=== PATIENT | female | born 1950 | race Caucasian/White ===

== ENCOUNTER 2016-10-25 16:26 | Emergency (ER) | payer BC ==
[~2016-10-25 16:26] MED LIST: Ciprofloxacin 500 MG Tab PO ONE; Ondansetron 4 MG Tab.DIS PO ONE
[2016-10-25 16:33] VITALS: BP 140/83
[2016-10-25 17:10] LABS: CHLORIDE,CL 100 mEq/L (98-106); SODIUM,NA 138 mEq/L (136-145)
--- NOTE | 2016-10-25 17:13 | EDM.PDOC ---
ED HPI GENERAL MEDICAL PROBLEM - General Chief Complaint: Abdominal Pain Stated Complaint: I THINK I HAVE DIVERTICULITIS Time Seen by Provider: 10/25/16 16:55 Source of Information: Reports: Patient History Limitations: Reports: No Limitations - History of Present Illness INITIAL COMMENTS - FREE TEXT/NARRATIVE: Patient presents to the ED with complaints of lower quadrant abdominal pain and back and right shoulder pain. Patient has been experiencing the back pain now for about a week. Did see Laith Pickens on Thursday, was started on Flexeril and [place] and sent to PT. She admits that today her back is the best it has been in a week. Pain is near the scapula. Doesn't recall a trigger for this or an injury. She awoke this am with lower quadrant pain and wonders if they are related. She has been running low grade temps today around 99.9. Feeling nauseated. She has a history of diverticulosis and has had infection with this in the past. Has had 3 bouts of this now in 3 months. First 2 episodes she states she stops eating and just takes fluids and tylenol and eventually it straightens out. She has this confirmed by colonoscopy and CT in the past. Has been on antibiotics before as well for it. She has had normal BMs lately, normal one this am. No blood. Denies any urinary complaints. Does not note a specific trigger of food that causes the flare. Onset: Today, Sudden Duration: Hour(s): Location: Reports: Abdomen Quality: Reports: Ache, Burning, Dull Severity: Mild Associated Symptoms: Reports: Fever/Chills, Loss of Appetite, Nausea/Vomiting Lower Abdominal Pain Score (Numeric/FACES): 1 Right Upper Arm Pain Score (Numeric/FACES): 4 - Related Data Allergies Allergy/AdvReac Type Severity Reaction Status Date / Time ciprofloxacin [From Cipro] Allergy Nausea Verified 10/25/16 16:27 codeine Allergy Nausea Verified 10/25/16 16:27 erythromycin base Allergy Nausea Verified 10/25/16 16:27 Penicillins Allergy Rash Verified 10/25/16 16:27 Home Meds: Home Meds ALPRAZolam [Alprazolam] 0.25 mg PO Q8H PRN 02/14/16 [History] Clopidogrel Bisulfate [Clopidogrel] 75 mg PO DAILY 02/14/16 [History] Levothyroxine Sodium [Levothyroxine Sodium] 50 mcg PO DAILY 02/14/16 [History] Simvastatin [Simvastatin] 40 mg PO DAILY 02/14/16 [History] Venlafaxine HCl [Venlafaxine ER] 75 mg PO DAILY 02/14/16 [History] Acetaminophen/HYDROcodone [[place] 325-5 MG] 1 tab PO Q6H PRN 10/25/16 [History] Cyclobenzaprine [Flexeril] 10 mg PO BEDTIME 10/25/16 [History] Past Medical History HEENT History: Reports: Impaired Vision Cardiovascular History: Reports: High Cholesterol Gastrointestinal History: Reports: Diverticulosis Endocrine/Metabolic History: Reports: Hypothyroidism - Past Surgical History GI Surgical History: Reports: Cholecystectomy Other Musculoskeletal Surgeries/Procedures:: RIGHT SHOULDER SURGERY Social & Family History - Tobacco Use Smoking Status *Q: Current Some Day Smoker Years of Tobacco use: 40 Packs/Tins Daily: 0.1 ED ROS GENERAL - Review of Systems Review Of Systems: See Below Constitutional: Reports: Fever, Chills, Malaise, Fatigue, Decreased Appetite HEENT: Denies: Ear Pain, Sinus Problem, Throat Pain, Vertigo Respiratory: Reports: Cough. Denies: Shortness of Breath, Wheezing Cardiovascular: Denies: Chest Pain, Edema, Lightheadedness Endocrine: Denies: Fatigue GI/Abdominal: Reports: Abdominal Pain, Decreased Appetite, Nausea. Denies: Constipation, Diarrhea, Hematochezia, Melena, Vomiting : Reports: No Symptoms Musculoskeletal: Reports: Back Pain Skin: Reports: No Symptoms Neurological: Reports: No Symptoms ED EXAM, GI/ABD - Physical Exam Exam: See Below Exam Limited By: No Limitations General Appearance: Alert, WD/WN, No Apparent Distress Ears: Normal TMs Nose: Normal Inspection, Normal Mucosa, No Blood Throat/Mouth: Normal Inspection, Normal Oropharynx Head: Normocephalic Neck: Normal Inspection, Supple, Non-Tender Respiratory/Chest: No Respiratory Distress, Lungs Clear, Normal Breath Sounds Cardiovascular: Regular Rate, Rhythm GI/Abdominal Exam: Normal Bowel Sounds, Soft, Tender (suprapubic area) Back Exam: Normal Inspection, Muscle Spasm, Other (tender near the scapular region) Extremities: Normal Inspection, Normal Capillary Refill Neurological: Alert, Oriented Psychiatric: Normal Affect, Normal Mood Skin Exam: Warm, Dry Course - Vital Signs Last Recorded V/S: Last Vital Signs Temp 98.9 F 10/25/16 16:30 Pulse 90 10/25/16 16:30 Resp 20 10/25/16 16:30 BP 140/83 10/25/16 16:30 Pulse Ox 98 10/25/16 16:30 - Orders/Labs/Meds Orders: Active Orders 24 hr Category Date Time Status Abdomen 2V AP Flat Upright [CR] Stat Exams 10/25/16 16:44 Ordered Labs: Laboratory Tests 10/25/16 10/25/16 10/25/16 Range/Units 16:55 16:55 16:55 WBC 7.8 (5.0-10.0) 10^3/uL RBC 5.15 (4.00-5.50) 10^6/uL Hgb 15.4 (12.0-16.0) g/dL Hct 46.5 (37.0-47.0) % MCV 90.3 (82.0-94.0) fL MCH 29.9 (27.0-32.0) pg MCHC 33.1 (33.0-38.0) g/dL RDW Coeff of [place] 13.2 (11.0-15.0) % Plt Count 209 (150-400) 10^3/uL Neut % (Auto) 76.8 (35-85) % Lymph % (Auto) 17.6 (10-55) % [place] % (Auto) 4.8 (0-16) % Eos % (Auto) 0.4 (0-5) % Baso % (Auto) 0.4 (0-3) % Neut # (Auto) 5.97 (1.80-7.00) 10^3/uL Lymph # (Auto) 1.37 (1.00-4.80) 10^3/uL [place] # (Auto) 0.37 (0.00-0.80) 10^3/uL Eos # (Auto) 0.03 (0.00-0.45) 10^3/uL Baso # (Auto) 0.03 10^3/uL Sodium 138 (136-145) mEq/L Potassium 4.2 (3.5-5.0) mEq/L Chloride 100 (98-106) mEq/L Carbon Dioxide 30 (21-32) mmol/L BUN 7 (7-18) mg/dL Creatinine 0.8 (0.6-1.0) mg/dL Est Cr Clr Drug Dosing 51.03 mL/min Estimated GFR (MDRD) > 60 (>=60) mL/min Glucose 123 H (75-99) mg/dL Calcium 9.5 (8.4-10.1) mg/dL Total Bilirubin 0.5 (0.0-1.0) mg/dL AST 48 H (15-37) U/L ALT 62 (12-78) U/L Alkaline Phosphatase 93 (46-116) U/L C-Reactive Protein 3.1 H (0.2-0.8) mg/dL Total Protein 7.1 (6.4-8.2) g/dL Albumin 3.7 (3.4-5.0) g/dL Urine Color Yellow (YELLOW) Urine Appearance Slightly cloudy (CLEAR) Urine pH 6.5 (4.5-8.0) Ur Specific [place] 1.010 (1.003-1.020) Urine Protein Negative (NEGATIVE) mg/dL Urine Glucose (UA) Negative (NEGATIVE) mg/dL Urine Ketones Negative (NEGATIVE) mg/dL Urine Occult Blood Moderate H (NEGATIVE) Urine Nitrite Negative (NEGATIVE) Urine Bilirubin Negative (NEGATIVE) Urine Urobilinogen 0.2 (0.2-1.0) EU/dL Ur Leukocyte Esterase Negative (NEGATIVE) Urine RBC 30-40 H (0-5) /HPF Urine WBC 0-5 (0-5) /HPF Ur Epithelial Cells Few H (NOT SEEN) /HPF - Re-Assessments/Exams Free Text/Narrative Re-Assessment/Exam: 10/25/16 1730 Patient given lab results. discussed previous history with CT scans and treatment plans in the past. Departure - Departure Time of Disposition: 17:38 Disposition: Home, Self-Care 01 Condition: Fair Clinical Impression: Diverticulitis - Discharge Information Forms: ED Department Discharge Additional Instructions: 1. Rest 2. Push fluids 3. Cipro 500 mg twice a day for 10 days 4. Flagyl 500 mg three times a day for 10 days 5. Zofran 4 mg every 6 hours as needed for nausea 6. Use your [place] for pain as needed 7. Continue PT for your back 8. Follow up if any ongoing concerns. - My Orders Last 24 Hours: My Active Orders 10/25/16 16:44 Abdomen 2V AP Flat Upright [CR] Stat - Assessment/Plan Last 24 Hours: My Active Orders 10/25/16 16:44 Abdomen 2V AP Flat Upright [CR] Stat
[2016-10-25] MEDS ORDERED: Take Home: Ciprofloxacin 500 MG Tab, 2 Tab Pack PO ONE (17:28)
[2016-10-25] MEDS ORDERED: Take Home: Ondansetron 4 MG Tab.DIS, 2 Tab Pack PO ONE (17:28)
[2016-10-25] MEDS ORDERED: metroNIDAZOLE 500 MG Tab PO SCH (17:30)
== END 2016-10-25 17:53 | disposition home or self-care (01) ==
LOC: CC.ED 16:26
DX: K57.92 Diverticulitis of intestine, part unspecified, without perforation or abscess without bleeding (principal); M25.511 Pain in right shoulder; E03.9 Hypothyroidism, unspecified; E78.00 Pure hypercholesterolemia, unspecified; F17.210 Nicotine dependence, cigarettes, uncomplicated; Z88.0 Allergy status to penicillin; Z88.5 Allergy status to narcotic agent; Z88.1 Allergy status to other antibiotic agents; Z88.8 Allergy status to other drugs, medicaments and biological substances; Z79.899 Other long term (current) drug therapy; Z90.49 Acquired absence of other specified parts of digestive tract
CPT/HCPCS: 36415; 74020; 80053; 81001; 85025; 86140; 99284; A9270

== ENCOUNTER 2020-03-23 06:28 | Emergency (ER) | payer MEDICARE, OTHER ==
[2020-03-23 06:31] VITALS: PULSE 73
[2020-03-23 07:04] LABS: CHLORIDE,CL 102 mEq/L (98-106); SODIUM,NA 138 mEq/L (136-145)
--- NOTE | 2020-03-23 07:15 | EDM.PDOC ---
ED HPI GENERAL MEDICAL PROBLEM - General Chief Complaint: General Stated Complaint: high BP Time Seen by Provider: 03/23/20 07:06 Source of Information: Reports: Patient, RN History Limitations: Reports: No Limitations - History of Present Illness INITIAL COMMENTS - FREE TEXT/NARRATIVE: States that she woke up this morning and felt her heart beat in her ears and checked her BP and it was high. She admits that she was dreaming when she woke up but doesn't remember what it was about. Doesn't feel it was a bad dream. She admits to more anxiety recently using more xanax in the last 2 weeks than she has had to recently. States that she has a grandson that has been ill and with COVID she feels more isolated. She denies any lightheadedness or dizziness. Currently she states that she feels OK. Did take a xanax this AM and feels some better with anxiety. Has not discussed her anxiety, depression or higher BP with Dr. Meyer. - Related Data Allergies Allergy/AdvReac Type Severity Reaction Status Date / Time ciprofloxacin [From Cipro] Allergy Nausea Verified 03/23/20 06:31 codeine Allergy Nausea Verified 03/23/20 06:31 erythromycin base Allergy Nausea Verified 03/23/20 06:31 Penicillins Allergy Rash Verified 03/23/20 06:31 Home Meds: Home Meds Clopidogrel Bisulfate [Clopidogrel] 75 mg PO DAILY 02/14/16 [History] Levothyroxine Sodium 50 mcg PO DAILY 02/14/16 [History] Simvastatin 40 mg PO DAILY 02/14/16 [History] Venlafaxine HCl [Venlafaxine ER] 75 mg PO DAILY 02/14/16 [History] ALPRAZolam [Xanax] 0.25 mg PO Q8HR PRN 03/23/20 [History] Past Medical History HEENT History: Reports: Impaired Vision Cardiovascular History: Reports: High Cholesterol Gastrointestinal History: Reports: Diverticulosis Neurological History: Reports: CVA Endocrine/Metabolic History: Reports: Hypothyroidism - Infectious Disease History Infectious Disease History: Reports: Chicken Pox - Past Surgical History GI Surgical History: Reports: Cholecystectomy Other Musculoskeletal Surgeries/Procedures:: RIGHT SHOULDER SURGERY Social & Family History - Tobacco Use Tobacco Use Status *Q: Current Every Day Tobacco User Years of Tobacco use: 50 Packs/Tins Daily: 0 - Caffeine Use Caffeine Use: Reports: Coffee, Soda - Recreational Drug Use Recreational Drug Use: No ED ROS GENERAL - Review of Systems Review Of Systems: See Below Constitutional: Reports: No Symptoms HEENT: Reports: No Symptoms Respiratory: Reports: No Symptoms Cardiovascular: Reports: No Symptoms. Denies: Chest Pain, Edema GI/Abdominal: Reports: No Symptoms Psychiatric: Reports: Anxiety ED EXAM, GENERAL - Physical Exam Exam: See Below Exam Limited By: No Limitations General Appearance: Alert, WD/WN, No Apparent Distress Ears: Normal External Exam, Normal TMs Nose: Normal Inspection Throat/Mouth: Normal Inspection, Normal Oropharynx Head: Atraumatic, Normocephalic Neck: Normal Inspection, Supple, Non-Tender, Full Range of Motion Respiratory/Chest: No Respiratory Distress, Lungs Clear, Normal Breath Sounds Cardiovascular: Regular Rate, Rhythm GI/Abdominal: Normal Bowel Sounds, Soft, Non-Tender Extremities: Normal Inspection, No Pedal Edema, Normal Capillary Refill Neurological: Alert, Oriented Skin Exam: Warm, Dry, Intact Course - Vital Signs Last Recorded V/S: Last Vital Signs Temp 97.3 F 03/23/20 06:29 Pulse 73 03/23/20 07:17 Resp 16 03/23/20 06:29 BP 176/84 H 03/23/20 07:17 Pulse Ox 95 03/23/20 06:29 - Orders/Labs/Meds Labs: Laboratory Tests 03/23/20 03/23/20 03/23/20 Range/Units 06:30 06:36 06:36 WBC 6.7 (5.0-10.0) 10^3/uL RBC 5.33 (4.00-5.50) 10^6/uL Hgb 16.0 (12.0-16.0) g/dL Hct 49.0 H (37.0-47.0) % MCV 91.9 (82.0-94.0) fL MCH 30.0 (27.0-32.0) pg MCHC 32.7 L (33.0-38.0) g/dL RDW Coeff of [place] 13.4 (11.0-15.0) % Plt Count 229 (150-400) 10^3/uL Neut % (Auto) 55.1 (35-85) % Lymph % (Auto) 37.3 (10-55) % [place] % (Auto) 5.2 (0-16) % Eos % (Auto) 1.8 (0-5) % Baso % (Auto) 0.6 (0-3) % Neut # (Auto) 3.70 (1.80-7.00) 10^3/uL Lymph # (Auto) 2.50 (1.00-4.80) 10^3/uL [place] # (Auto) 0.35 (0.00-0.80) 10^3/uL Eos # (Auto) 0.12 (0.00-0.45) 10^3/uL Baso # (Auto) 0.04 10^3/uL Sodium 138 (136-145) mEq/L Potassium 3.8 (3.5-5.0) mEq/L Chloride 102 (98-106) mEq/L Carbon Dioxide 33 H (21-32) mmol/L BUN 12 (7-18) mg/dL Creatinine 0.9 (0.6-1.0) mg/dL Est Cr Clr Drug Dosing 42.97 mL/min Estimated GFR (MDRD) > 60 (>=60) mL/min Glucose 101 H (75-99) mg/dL Calcium 10.2 H (8.4-10.1) mg/dL Urine Color Yellow (YELLOW) Urine Appearance Clear (CLEAR) Urine pH 7.0 (4.5-8.0) Ur Specific [employer] 1.015 (1.003-1.020) Urine Protein Negative (NEGATIVE) mg/dL Urine Glucose (UA) Negative (NEGATIVE) mg/dL Urine Ketones Negative (NEGATIVE) mg/dL Urine Occult Blood Trace-lysed H (NEGATIVE) Urine Nitrite Negative (NEGATIVE) Urine Bilirubin Negative (NEGATIVE) Urine Urobilinogen 0.2 (0.2-1.0) EU/dL Ur Leukocyte Esterase Negative (NEGATIVE) Urine RBC 0-5 (0-5) /HPF Urine WBC Not seen (0-5) /HPF Ur Epithelial Cells Few H (NOT SEEN) /HPF Departure - Departure Time of Disposition: 07:21 Disposition: Home, Self-Care 01 Condition: Good Clinical Impression: Hypertension Qualifiers: Hypertension type: essential hypertension Qualified Code(s): I10 - Essential (primary) hypertension - Discharge Information *PRESCRIPTION DRUG MONITORING PROGRAM REVIEWED*: Not Applicable *COPY OF PRESCRIPTION DRUG MONITORING REPORT IN PATIENT PAO: Not Applicable Instructions: Hypertension, Adult, [id number] Forms: ED Department Discharge Additional Instructions: start lisinopril 10 mg daily for elevated BP Follow up with Dr. Meyer your PCP in a week to recheck BP Watch salt intake stop smoking Be as active as possible Sepsis Event Note (ED) - Evaluation Sepsis Screening Result: No Definite Risk - Focused Exam Vital Signs: Vital Signs Temp Pulse Resp BP Pulse Ox 03/23/20 07:17 73 176/84 H 03/23/20 06:29 97.3 F 73 16 198/95 H 95 - Problem List & Annotations (1) Hypertension SNOMED Code(s): 14747106 Code(s): I10 - ESSENTIAL (PRIMARY) HYPERTENSION Status: Acute Priority: High Qualifiers: Hypertension type: essential hypertension Qualified Code(s): I10 - Essential (primary) hypertension - Problem List Review Problem List Initiated/Reviewed/Updated: Yes
[2020-03-23 07:17] VITALS: BP 176/84
== END 2020-03-23 07:27 | disposition home or self-care (01) ==
LOC: CC.ED 06:28
DX: I10 Essential (primary) hypertension (principal); F17.210 Nicotine dependence, cigarettes, uncomplicated; E03.9 Hypothyroidism, unspecified; E78.00 Pure hypercholesterolemia, unspecified; Z88.1 Allergy status to other antibiotic agents; Z88.5 Allergy status to narcotic agent; Z88.0 Allergy status to penicillin; Z79.02 Long term (current) use of antithrombotics/antiplatelets; Z79.899 Other long term (current) drug therapy; Z86.73 Personal history of transient ischemic attack (TIA), and cerebral infarction without residual deficits
CPT/HCPCS: 36415; 80048; 81001; 85025; 99283; 99284

== ENCOUNTER 2020-05-19 16:04 | Emergency (ER) | payer MEDICARE, OTHER ==
[2020-05-19 16:07] VITALS: BP 158/82; PULSE 83
--- NOTE | 2020-05-19 16:35 | EDM.PDOC ---
ED HPI GENERAL MEDICAL PROBLEM - General Chief Complaint: Lower Extremity Injury/Pain Stated Complaint: L knee pain Time Seen by Provider: 05/19/20 16:07 Source of Information: Reports: Patient History Limitations: Reports: No Limitations - History of Present Illness INITIAL COMMENTS - FREE TEXT/NARRATIVE: This patient is a 69 year old female that presents to the ER. Patient reports that she was watching her sons dogs. She reports a big dog and small dog. She reports the large dog was playing and backed into the side of her left nee. Patient reports left medial knee pain. No other injuries or fall. Onset: Today Onset Date: 05/19/20 Location: Reports: Lower Extremity, Left Quality: Reports: Ache Severity: Mild Improves with: Reports: Movement Worsens with: Reports: Immobilization Associated Symptoms: Reports: No Other Symptoms. Denies: Confusion, Chest Pain, Cough, cough w sputum, Diaphoresis, Fever/Chills, Headaches, Loss of Appetite, Malaise, Nausea/Vomiting, Rash, Seizure, Shortness of Breath, Syncope, Weakness Left Knee Pain Score (Numeric/FACES): 3 - Related Data Allergies Allergy/AdvReac Type Severity Reaction Status Date / Time ciprofloxacin [From Cipro] Allergy Nausea Verified 05/19/20 16:07 codeine Allergy Nausea Verified 05/19/20 16:07 erythromycin base Allergy Nausea Verified 05/19/20 16:07 Penicillins Allergy Rash Verified 05/19/20 16:07 Home Meds: Home Meds Clopidogrel Bisulfate [Clopidogrel] 75 mg PO DAILY 02/14/16 [History] Levothyroxine Sodium 50 mcg PO DAILY 02/14/16 [History] Simvastatin 40 mg PO DAILY 02/14/16 [History] Venlafaxine HCl [Venlafaxine ER] 75 mg PO DAILY 02/14/16 [History] ALPRAZolam [Xanax] 0.25 mg PO Q8HR PRN 03/23/20 [History] Past Medical History HEENT History: Reports: Impaired Vision Cardiovascular History: Reports: High Cholesterol Gastrointestinal History: Reports: Diverticulosis Neurological History: Reports: CVA Endocrine/Metabolic History: Reports: Hypothyroidism - Infectious Disease History Infectious Disease History: Reports: Chicken Pox - Past Surgical History GI Surgical History: Reports: Cholecystectomy Other Musculoskeletal Surgeries/Procedures:: RIGHT SHOULDER SURGERY Social & Family History - Tobacco Use Tobacco Use Status *Q: Current Every Day Tobacco User Years of Tobacco use: 40 Packs/Tins Daily: 0.5 - Caffeine Use Caffeine Use: Reports: Coffee, Soda - Recreational Drug Use Recreational Drug Use: No Review of Systems - Review of Systems Review Of Systems: See Below Constitutional: Reports: No Symptoms Eyes: Reports: No Symptoms Ears: Reports: No Symptoms Nose: Reports: No Symptoms Mouth/Throat: Reports: No Symptoms Respiratory: Reports: No Symptoms Cardiovascular: Reports: No Symptoms GI/Abdominal: Reports: No Symptoms Musculoskeletal: Reports: Joint Pain (left medial knee). Denies: Neck Pain, Leg Pain, Joint Swelling Skin: Reports: No Symptoms Neurological: Reports: No Symptoms Psychiatric: Reports: No Symptoms ED EXAM, GENERAL - Physical Exam Exam: See Below Exam Limited By: No Limitations General Appearance: Alert, WD/WN, No Apparent Distress Ears: Normal External Exam, Normal Canal, Hearing Grossly Normal, Normal TMs Ear Exam: Bilateral Ear: Auricle Normal, Canal Normal, TM normal Respiratory/Chest: No Respiratory Distress, Lungs Clear, Normal Breath Sounds, No Accessory Muscle Use Cardiovascular: Normal Peripheral Pulses, Regular Rate, Rhythm, No Edema, No Gallop, No JVD, No Murmur, No Rub Peripheral Pulses: 2+: Radial (L), Radial (R), Posterior Tibial (L), Posterior Tibial (R), Dorsalis Pedis (L), Dorsalis Pedis (R) Back Exam: Normal Inspection, Full Range of Motion. No: CVA Tenderness (L), CVA Tenderness (R), Decreased Range of Motion, Muscle Spasm, Paraspinal Tenderness, Vertebral Tenderness Extremities: Normal Inspection, Normal Range of Motion, No Pedal Edema, Normal Capillary Refill, Other (mild tenderness left medial knee. ROM intact. Sensory/Motor function intact. Neurovascular intact. Pulses +2, cap refill < 2 sec. ) Neurological: Alert, Oriented Psychiatric: Normal Affect, Normal Mood Skin Exam: Warm, Dry, Intact, Normal Color, No Rash Course - Vital Signs Last Recorded V/S: Last Vital Signs Temp 96.6 F L 05/19/20 16:05 Pulse 83 05/19/20 16:05 Resp 18 05/19/20 16:05 BP 158/82 H 05/19/20 16:05 Pulse Ox 94 L 05/19/20 16:05 - Orders/Labs/Meds Orders: Active Orders 24 hr Category Date Time Status Knee 3V Lt [CR] Stat Exams 05/19/20 16:16 Taken - Radiology Interpretation Free Text/Narrative:: Left Knee Xray: no acute findings Departure - Departure Time of Disposition: 16:40 Disposition: Home, Self-Care 01 Condition: Good Clinical Impression: Left knee sprain Qualifiers: Encounter type: initial encounter Involved ligament of knee: medial collateral ligament Qualified Code(s): S83.412A - Sprain of medial collateral ligament of left knee, initial encounter - Discharge Information *PRESCRIPTION DRUG MONITORING PROGRAM REVIEWED*: Not Applicable *COPY OF PRESCRIPTION DRUG MONITORING REPORT IN PATIENT PAO: Not Applicable Instructions: Knee Sprain, Adult, [id number] Forms: ED Department Discharge Additional Instructions: Followup with your primary care provider if pain continues after 10-14 days Return to the ER for worsening of condition or any emergent concerns Tylenol or Motrin for pain Rest Ice Elevate Crutches as needed, weight bear as tolerated Knee Immobilizer as needed Sepsis Event Note (ED) - Evaluation Sepsis Screening Result: No Definite Risk - Focused Exam Vital Signs: Vital Signs Temp Pulse Resp BP Pulse Ox 05/19/20 16:05 96.6 F L 83 18 158/82 H 94 L - My Orders Last 24 Hours: My Active Orders 05/19/20 16:16 Knee 3V Lt [CR] Stat - Assessment/Plan Last 24 Hours: My Active Orders 05/19/20 16:16 Knee 3V Lt [CR] Stat Plan: PLEASE SEE RN NOTE FOR PFSH
== END 2020-05-19 16:48 | disposition home or self-care (01) ==
LOC: CC.ED 16:04
DX: S83.412A Sprain of medial collateral ligament of left knee, initial encounter (principal); E78.00 Pure hypercholesterolemia, unspecified; E03.9 Hypothyroidism, unspecified; Z86.73 Personal history of transient ischemic attack (TIA), and cerebral infarction without residual deficits; Z72.0 Tobacco use; Z88.1 Allergy status to other antibiotic agents; Z88.0 Allergy status to penicillin; Z88.5 Allergy status to narcotic agent; Z79.02 Long term (current) use of antithrombotics/antiplatelets; Z79.899 Other long term (current) drug therapy; W54.1XXA Struck by dog, initial encounter
CPT/HCPCS: 73562-LT; 99283; 99283-25

== ENCOUNTER 2024-06-02 19:34 | Emergency (ER) | payer MEDICARE, OTHER ==
[2024-06-02] MEDS: Ondansetron 4 MG/2 ML SDV IVPUSH STA (19:47)
[2024-06-02 20:25] LABS: APPEARANCE,URINE CLEAR (CLEAR); BILIRUBIN,URINE NEGATIVE (NEGATIVE); COLOR,URINE YELLOW (YELLOW); GLUCOSE,URINE NEGATIVE (NEGATIVE); KETONES,URINE NEGATIVE (NEGATIVE); LEUKOCYTE ESTERASE,URINE TRACE (NEGATIVE); NITRITE,URINE NEGATIVE (NEGATIVE); OCCULT BLOOD,URINE NEGATIVE (NEGATIVE); PROTEIN,URINE NEGATIVE (NEGATIVE); UROBILINOGEN,URINE 0.2 EU/dL (0.2-1.0)
[2024-06-02 20:26] LABS: BASOPHILS ABSOLUTE AUTO 0.01 10^3/uL (0.00-0.50); BASOPHILS PERCENT AUTO 0.3 % (0-1); EOSINOPHILS ABSOLUTE AUTO 0.06 10^3/uL (0.00-1.50); HEMATOCRIT 34.7 % (37.0-47.0); HEMOGLOBIN 11.5 g/dL (12.0-16.0); IMMATURE GRAN ABSOLUTE AUTO 0.02 10^3/uL (0.00-0.49); IMMATURE GRAN PERCENT AUTO 0.7 % (0.0-4.9); LYMPHOCYTES ABSOLUTE AUTO 0.47 10^3/uL (0.60-5.00); LYMPHOCYTES PERCENT AUTO 15.4 % (24-44); MEAN CORPUSCULAR HEMOGLOBIN 30.2 pg (27.0-32.0); MEAN CORPUSCULAR HGB CONC 33.1 g/dL (32.0-36.0); MEAN CORPUSCULAR VOLUME 91.1 fL (83.0-97.0); MONOCYTES ABSOLUTE AUTO 0.11 10^3/uL (0.00-1.50); MONOCYTES PERCENT AUTO 3.6 % (0-10); NEUTROPHILS ABSOLUTE AUTO 2.38 x10^3/uL (1.80-8.00); PLATELET COUNT,PLT 92 10^3/uL (150-400); RED BLOOD CELL COUNT 3.81 x10^6/uL (4.00-5.50); WHITE BLOOD CELL COUNT,WBC 3.1 10^3/uL (4.0-11.0)
[2024-06-02 20:33] LABS: ALANINE AMINOTRANSFERASE,ALT 42 U/L (12-78); ALBUMIN 3.3 g/dL (3.4-5.0); ALKALINE PHOSPHATASE 106 U/L (46-116); ASPARTATE AMNIOTRANSFERASE,AST 30 U/L (15-37); BILIRUBIN TOTAL 0.4 mg/dL (0.0-1.0); BLOOD UREA NITROGEN,BUN 11 mg/dL (7-18); CALCIUM 9.7 mg/dL (8.4-10.1); CARBON DIOXIDE,CO2 25 mmol/L (21-32); CHLORIDE,CL 99 mEq/L (98-106); GLUCOSE RANDOM 142 mg/dL (75-99); MAGNESIUM 1.6 mg/dL (1.8-2.4); POTASSIUM,K 3.7 mEq/L (3.5-5.0); PROTEIN TOTAL,TP 6.6 g/dL (6.4-8.2); SODIUM,NA 131 mEq/L (136-145)
[2024-06-02 20:34] LABS: C-REACTIVE PROTEIN < 0.50 mg/dL (<=0.50); ESTIMATED GFR 60 mL/min (>=60)
[2024-06-02 20:38] LABS: EPITHELIAL CELLS,URINE MODERATE /HPF (NOT SEEN); RBC,URINE 0-5 /HPF (0-5)
[2024-06-02 20:39] LABS: BACTERIA,URINE OCCASIONAL /HPF (NOT SEEN)
[2024-06-02] MEDS: Sodium Chloride 0.9% 1,000 ML IV ONE (21:01)
[2024-06-02] MEDS: Magnesium Oxide 400 MG Tab PO ONE (21:01)
[2024-06-02 22:26] VITALS: BP 181/82; PULSE 101
[2024-06-02] MEDS: Take Home: Ondansetron 4 MG Tab.DIS, 2 Tab Pack PO ONE (23:23)
== END 2024-06-02 23:22 | disposition home or self-care (01) ==
LOC: CC.ED 19:34
DX: D70.2 Other drug-induced agranulocytosis (principal); E87.1 Hypo-osmolality and hyponatremia; R11.2 Nausea with vomiting, unspecified; E78.00 Pure hypercholesterolemia, unspecified; E03.9 Hypothyroidism, unspecified; Z86.73 Personal history of transient ischemic attack (TIA), and cerebral infarction without residual deficits; Z90.49 Acquired absence of other specified parts of digestive tract; Z88.0 Allergy status to penicillin; Z88.1 Allergy status to other antibiotic agents; Z88.5 Allergy status to narcotic agent; Z88.8 Allergy status to other drugs, medicaments and biological substances; Z79.890 Hormone replacement therapy; Z79.899 Other long term (current) drug therapy
CPT/HCPCS: 36415; 71045; 80053; 81001; 83605; 83735; 85025; 86140; 87040; 87428-QW; 96361; 96374; 99284; 99284-25; A9270-GY; J1642; J2405; J7030

== ENCOUNTER 2024-11-07 17:41 | Emergency (ER) | payer MEDICARE, OTHER ==
[2024-11-07 18:02] LABS: BASOPHILS ABSOLUTE AUTO 0.03 10^3/uL (0.00-0.50); BASOPHILS PERCENT AUTO 0.9 % (0-1); EOSINOPHILS ABSOLUTE AUTO 0.01 10^3/uL (0.00-1.50); EOSINOPHILS PERCENT AUTO 0.3 % (0-6); IMMATURE GRAN ABSOLUTE AUTO 0.03 10^3/uL (0.00-0.49); IMMATURE GRAN PERCENT AUTO 0.9 % (0.0-4.9); LYMPHOCYTES ABSOLUTE AUTO 0.74 10^3/uL (0.60-5.00); LYMPHOCYTES PERCENT AUTO 21.5 % (24-44); MONOCYTES ABSOLUTE AUTO 0.21 10^3/uL (0.00-1.50); MONOCYTES PERCENT AUTO 6.1 % (0-10); NEUTROPHILS ABSOLUTE AUTO 2.42 x10^3/uL (1.80-8.00); NEUTROPHILS PERCENT AUTO 70.3 % (41-71); PLATELET COUNT,PLT 77 10^3/uL (150-400); RED BLOOD CELL COUNT 3.84 x10^6/uL (4.00-5.50); WHITE BLOOD CELL COUNT,WBC 3.4 10^3/uL (4.0-11.0)
[2024-11-07 18:15] LABS: ALANINE AMINOTRANSFERASE,ALT 97.0 U/L (12-78); ASPARTATE AMNIOTRANSFERASE,AST 78.0 U/L (15-37); BILIRUBIN TOTAL 0.4 mg/dL (0.0-1.0); BLOOD UREA NITROGEN,BUN 11.0 mg/dL (7-18); CARBON DIOXIDE,CO2 26.0 mmol/L (21-32); CHLORIDE,CL 97.0 mEq/L (98-106); CREATININE 1.2 mg/dL (0.6-1.0); EST CRCL DRUG DOSING (CG) 30.44 mL/min; GLUCOSE RANDOM 138.0 mg/dL (75-99); POTASSIUM,K 3.7 mEq/L (3.5-5.0); PROTEIN TOTAL,TP 7.2 g/dL (6.4-8.2); SODIUM,NA 133.0 mEq/L (136-145)
[2024-11-07 18:18] LABS: ESTIMATED GFR 48.0 mL/min (>=60); LACTIC ACID 1.4 mmol/L (0.4-2.0)
[2024-11-07 18:36] LABS: APPEARANCE,URINE CLEAR (CLEAR); GLUCOSE,URINE NEGATIVE (NEGATIVE); OCCULT BLOOD,URINE MODERATE (NEGATIVE)
[2024-11-07 18:40] LABS: EPITHELIAL CELLS,URINE FEW /HPF (NOT SEEN)
[2024-11-07 19:02] VITALS: BP 144/85; PULSE 76
== END 2024-11-07 19:35 | disposition home or self-care (01) ==
LOC: CC.ED 17:41
DX: R50.9 Fever, unspecified (principal); E86.0 Dehydration; K04.7 Periapical abscess without sinus; E03.9 Hypothyroidism, unspecified; Z79.899 Other long term (current) drug therapy; Z79.890 Hormone replacement therapy; Z88.1 Allergy status to other antibiotic agents; Z88.0 Allergy status to penicillin; Z88.5 Allergy status to narcotic agent; Z90.49 Acquired absence of other specified parts of digestive tract
CPT/HCPCS: 36415; 71046; 80053; 81001; 83605; 85025; 86140; 86308; 87040; 87428; 96360; 99283; 99284; A9270; J7030